=== PATIENT | male | born 1990 | race Caucasian/White ===

== ENCOUNTER 2016-11-28 19:58 | Emergency (ER) | payer OTHER ==
[~2016-11-28] VITALS: Ht 172.7 cm; Wt 72.6 kg
--- NOTE | 2016-11-28 22:00 | ED PSYCHIATRIC COMPLAINT ---
See Addendum History of Present Illness General Chief Complaint: ETOH/Drug Related Complaint Stated Complaint: "PER MOM DETOX FOR ETOH" Source: patient, family Exam Limitations: intoxication Vital Signs & Intake/Output Vital Signs & Intake/Output Vital Signs Date Time Temp Pulse Resp B/P Pulse O2 O2 Flow FiO2 Ox Delivery Rate 11/28 2005 96.9 105 18 136/94 100 Room Air Allergies Coded Allergies: No Known Allergies (11/28/16) Triage Note: PT TO ED FOR ETOH DETOX, REPORTING HE IS DRINKING 20-30 BEERS A DAY. DENIES ANY OTHER MEDICAL PROBLEMS, ADMITS TO DRINKING 20-30 BEERS TODAY [employer]. Triage Nurses Notes Reviewed? yes Onset: Gradual Duration: 2 years Timing: recent history Severity: severe Associated Symptoms: ABDOMINAL PAIN, ELEVATED BP HPI: This is a 26 old male with history of alcohol abuse for many years presents to the ER with his mother for chief complaint of wanting to be evaluated. He states he drank 20 beers today but usually drinks about 20-30 beers per day. Complains of abdominal pain. He states that his blood pressure was 202/190. History of alcohol withdrawal seizure last was 2 years ago. Past History Travel History Traveled to [place] past 21 day No Medical History Any Pertinent Medical History? see below for history Neurological: NONE EENT: NONE Cardiovascular: NONE Respiratory: NONE Gastrointestinal: NONE Hepatic: NONE Renal: NONE Musculoskeletal: NONE Psychiatric: NONE Endocrine: NONE Blood Disorders: NONE Cancer(s): NONE Surgical History Surgical History: non-contributory Psychosocial History What is your primary language Latvian Tobacco Use: Current Daily Use Daily Tobacco Use Amount/Type: => 5 Cigarettes daily ETOH Use: alcoholic Illicit Drug Use: denies illicit drug use Family History Comment: Father of alcoholism 14 years ago Hx Contributory? Yes Review of Systems Review of Systems Constitutional: Denies: chills, fever. EENTM: Reports: no symptoms. Respiratory: Reports: no symptoms. Cardiovascular: Reports: no symptoms. GI: Reports: abdominal pain. Genitourinary: Reports: no symptoms. Musculoskeletal: Reports: no symptoms. Skin: Reports: no symptoms. Neurological/Psychological: Reports: ataxia. Hematologic/Endocrine: Denies: bruising, bleeding, polyuria, polydipsia. Immunologic/Allergic: Denies: splenectomy. All Other Systems: Reviewed and Negative Physical Exam Physical Exam General Appearance: well developed/nourished, alert, awake, mild distress Head: atraumatic, normal appearance Eyes: Bilateral: normal appearance, PERRL, EOMI. Ears, Nose, Throat: normal pharynx, normal ENT inspection, hearing grossly normal Neck: normal inspection, supple, full range of motion Respiratory: normal breath sounds, chest non-tender, no respiratory distress Cardiovascular: regular rate/rhythm Gastrointestinal: normal bowel sounds, soft, tenderness (EPIGASTRIC, RIGHT UPPER QUADRA) Neurological/Psychiatric: no motor/sensory deficits, awake, alert, calm, INTOXICATED Appearance/Memory/Insight: denies illness, disheveled Behavoir/Eye Contact/Speech: cooperative, decreased rate of speech Thoughts/Hallucinations: no apparent hallucination SAD PERSONS Done? patient not suicidal Progress Differential Diagnosis: ALCOHOL INTOXICATION, PANCREATITIS, HEPATITIS Plan of Care: Orders Procedure Date/time Status CIWA 11/28 2221 Active MAGNESIUM 11/28 2221 Active URINE DRUGS OF ABUSE 11/28 2201 Active ETHANOL 11/28 2201 Active COMPREHENSIVE METABOLIC PANEL 11/28 2201 Active CBC WITHOUT DIFFERENTIAL 11/28 2201 Active Hand-Off Endorsed To: RIC MOSLEY,HECTOR Ghotra Endorsed Time: 2299 Pending: labs, other (REEVALUATION) Departure Departure Disposition: STILL A PATIENT Condition: Stable Clinical Impression Primary Impression: Alcohol abuse Referrals: THERESA WATSON MD (PCP/Family) Departure Forms: Customer Survey General Discharge Information
[2016-11-28 22:49] LABS: ABSOLUTE BASOPHIL COUNT 0 /CUMM (0.0-0.2); ABSOLUTE EOSINOPHIL COUNT 0 /CUMM (0.0-0.7); ABSOLUTE GRANULOCYTE CT 2.5 /CUMM (1.4-6.5); ABSOLUTE LYMPH COUNT 2.6 /CUMM (1.2-3.4); ABSOLUTE MONOCYTE COUNT 0.7 /CUMM (0.10-0.60); BASOPHIL % 0.6 % (0.0-2.0); EOSINOPHIL % 0.3 % (0-5); GRANULOCYTE % 42.6 % (42.2-75.2); HEMATOCRIT 49.5 % (42-52); MEAN CORPUSCULAR HGB 31.8 PG (27.0-31.0); MEAN CORPUSCULAR HGB CONC 33.4 G/DL (33.0-37.0); MEAN CORPUSCULAR VOLUME 95.1 FL (80.0-94.0); MEAN PLATELET VOLUME 7.7 FL (7.4-10.4); PLATELET COUNT 233 /CUMM (130-400); RBC DISTRIBUTION WIDTH 13.3 % (11.5-14.5); WHITE BLOOD CELL COUNT 5.8 /CUMM (4.8-10.8)
[2016-11-29 10:30] VITALS: BP 120/88
== END 2016-11-29 10:43 ==
LOC: ERH 19:58
PROVIDERS: Emergency Medicine
DX: F10.10 Alcohol abuse, uncomplicated (principal); R00.0 Tachycardia, unspecified
CPT/HCPCS: 80307; G0480